=== PATIENT | female | born 1980 | race Caucasian/White ===

== ENCOUNTER 2024-04-08 06:20 | Day surgery (SDC) | payer OTHER, SELFPAY ==
[2024-03-21 10:14] VITALS: BMI 32.9
[2024-03-21 11:48] LABS: Hematocrit 41.5 % (37.0-47.0); Hemoglobin 13.3 g/dL (12.0-16.0); Mean Corpuscular Hgb 30.9 pg (27.0-31.0); Mean Corpuscular Volume 96.5 fL (81.0-99.0); Mean Platelet Volume 11.5 fL (7.4-10.4); Platelet Count 197 10^3/uL (130-400); Red Cell Dist. Width 13.2 % (11.5-14.5); White Blood Cell Count 5.3 10^3/uL (4.8-10.8)
[2024-03-21 12:20] LABS: Blood Urea Nitrogen 13 mg/dl (7-17); Calcium 9.4 mg/dl (8.4-10.2); Carbon Dioxide 30 mmol/L (22-30); Chloride 102 mmol/L (98-107); Estimated Creatinine Clearance 107 ml/min; Glucose 78 mg/dl (70-99); Potassium 4.5 mmol/L (3.5-5.1); Sodium 140 mmol/L (135-145); eGFR > 60.00
[2024-04-08] VITALS (11 sets, daily range): BP systolic 109–154; BP diastolic 69–86; BMI 32.9
[2024-04-08] MEDS: Pyridium 200 MG PO (06:35)
[2024-04-08] MEDS: HEPARIN 5000 UNITS SC (06:35)
[2024-04-08] MEDS: NORMOSOL-R/PLASMALYTE-A 1000 IV (06:47)
[2024-04-08] MEDS: ZOFRAN 4 MG IV (10:05)
== END 2024-04-08 11:01 | disposition home or self-care (01) ==
LOC: SDS 06:20
PROVIDERS: Specialist; ATTENDING PHYSICIAN Obstetrics & Gynecology; FAMILY PHYSICIAN Family Medicine
PROC: 0UBG7ZZ Excision of Vagina, Via Natural or Artificial Opening (ICD-10-PCS; 2024-04-08)
DX: N82.0 Vesicovaginal fistula (principal); R32 Unspecified urinary incontinence; Z87.891 Personal history of nicotine dependence
CPT/HCPCS: 57320; 36415; 80048; 85027; 86850; 86900; 86901; 93005; A4300; J1580